=== PATIENT | female | born 1930 | race Caucasian/White ===

== ENCOUNTER → 2017-03-16 | Outpatient (CLI) | payer MEDICARE, BC ==
[~2017-03-16] MED LIST: AGGRENOX ER 251 CER PO; AMOXICILLIN 8751 TAB PO; ASPIR-LOW81 MG PO; ASPIRIN 81M81 MG/TA2 PO; BACTRIM DS 8001 TAB PO; BENADRYL25 M2 PO; BENICAR 20MG TA20 MG PO; BENICAR40 MG; BP MEDICATION; CEPHALEXIN500 M1 PO; CORICIDIN COUGH1 TAB PO; COZAAR100 MG PO; DIURETIC; FLAGYL500 MG PO; FOSAMAX 70MG TA70 MG PO; K-TAB20 PO; LEVAQUIN 750MG750 M1 PO; LEXAPRO 10MG10 MG PO; LOPRESSOR 225 MG/TAB PO; MICARDIS20 MG PO; NIZORAL CREAM15 GM TP; TRAVATAN 2.5 M2.5 M1 OU; TYLENOL 500MG500 MG PO; ULTRAM 50MG TAB50 MG PO; ZOFRAN ODT4 MG PO
== END ==
LOC: COL.RAD 07:46
DX: M48.06 Spinal stenosis, lumbar region (principal); M51.37 Other intervertebral disc degeneration, lumbosacral region; M46.87 Other specified inflammatory spondylopathies, lumbosacral region; M54.41 Lumbago with sciatica, right side; M43.17 Spondylolisthesis, lumbosacral region; M25.551 Pain in right hip; M79.604 Pain in right leg

== ENCOUNTER 2017-04-03 13:54 | Emergency (ER) | payer MEDICARE, BC ==
[~2017-04-03] VITALS: Ht 149.9 cm; Wt 72.7 kg
[2017-04-03 13:55] VITALS: TEMP 98.2
[2017-04-03] MEDS ORDERED: REQUIP5 MG PO (14:20)
[2017-04-03] MEDS ORDERED: ASPIRIN 81M81 MG/TA2 PO (14:21)
[2017-04-03] MEDS ORDERED: TIAZAC120 MG PO (14:22)
[2017-04-03] MEDS ORDERED: COZAAR100 MG PO (14:23)
[2017-04-03] MEDS ORDERED: PROLIA60 MG/ML SQ (14:24)
[2017-04-03 15:02] LABS: BASO # 0.1 (0.0-0.2); BASO % 0.6 % (0.0-2.0); EOS # 0.1 (0.0-0.7); EOS % 0.6 % (0-4.0); GRAN # 10.4 (1.4-6.5); GRAN % 78.2 % (42.2-75.2); LYMPH # 1.9 (1.2-3.4); LYMPH % 14.1 % (20.0-51.0); MEAN CELL VOLUME 98 fl (80.0-100.0); MEAN CORPUSCULAR HGB CONC 34 g/dl (33.0-37.0); MEAN PLATELET VOLUME 9.1 fl (7.4-10.4); MONO # 0.8 (0.1-0.6); MONO % 6.2 % (1.7-9.3); PLATELET COUNT 526 K/mm3 (130-400); RED BLOOD COUNT 2.72 M/mm3 (4.10-5.30); REDCELL DISTRIBUTION WIDTH-CV 15.3 % (11.5-14.5); WHITE BLOOD COUNT 13.3 K/mm3 (4.8-10.8)
[2017-04-03 15:04] LABS: HEMATOCRIT 26.6 % (37.0-47.0); HEMOGLOBIN 8.9 g/dl (12.5-16.0); MEAN CORPUSCULAR HEMOGLOBIN 33 pg (27.0-31.0); PH 5 (5-8); SQUAMOUS EPITHELIAL 0-2 /hpf; URINE APPEARANCE Clear; URINE BACTERIA None Seen /hpf; URINE BILIRUBIN Negative (NEGATIVE); URINE BLOOD Negative (NEGATIVE); URINE COLOR Yellow; URINE GLUCOSE Negative (NEGATIVE); URINE KETONE Trace (NEGATIVE); URINE RBC 0-2 /hpf; URINE UROBILINOGEN Negative (NEGATIVE); URINE WBC 0-2 /hpf
[2017-04-03 15:19] LABS: ADJUSTED CALCIUM 9.5 mg/dL (8.4-10.2); BILIRUBIN,TOTAL 0.4 mg/dL (0.0-1.0); C-REACTIVE PROTEIN 1.4 mg/dL (0.0-0.9); CALCIUM 9.5 mg/dL (8.4-10.2); CREATININE, serum 0.71 mg/dL (0.52-1.25); MAGNESIUM 2.1 mg/dL (1.6-2.3); POTASSIUM 4.2 mmol/L (3.4-5.0); TOTAL PROTEIN 6.9 gm/dL (6.4-8.2)
[2017-04-03] MEDS ORDERED: LEVAQUIN 750MG750 M1 PO (17:50)
[2017-04-03] MEDS ORDERED: FLAGYL500 MG PO (17:50)
[2017-04-03 19:41] VITALS: BP 117/61; PULSE 87
== END 2017-04-03 19:42 | disposition home or self-care (01) ==
LOC: COL.ER 13:54
PROVIDERS: Emergency Medicine
DX: K57.92 Diverticulitis of intestine, part unspecified, without perforation or abscess without bleeding (principal); D64.9 Anemia, unspecified; Z90.49 Acquired absence of other specified parts of digestive tract; Z90.89 Acquired absence of other organs; Z90.710 Acquired absence of both cervix and uterus
CPT/HCPCS: J2405; J7030; Q9967

== ENCOUNTER → 2017-04-28 | Outpatient (CLI) | payer MEDICARE, BC ==
[~2017-04-28] MED LIST changes: +CARDIZEM 90MG T90 MG PO; +CIPRO 500MG TA500 MG PO; +FERROUS SU325 MG/TAB PO; +FERROUSAL325 MG PO; +PROLIA60 MG/ML SQ; +PROTONIX 40MG T40 MG PO; +REQUIP5 MG PO; +TIAZAC120 MG PO; +VITAMIN C500 MG PO
== END ==
LOC: MC.RAD 07:56
DX: Z12.31 Encounter for screening mammogram for malignant neoplasm of breast (principal); Z98.890 Other specified postprocedural states

== ENCOUNTER → 2017-05-30 | Outpatient (CLI) | payer MEDICARE, BC ==
[~2017-05-30] VITALS: Ht 149.9 cm; Wt 72.9 kg
[~2017-05-30] MED LIST changes: +PROTONIX20 MG PO
[2017-05-30 13:06] VITALS: BP 130/66; PULSE 85
[2017-05-30 14:30] VITALS: BP 164/79; PULSE 76
== END ==
LOC: COL.RAD 12:48
DX: M48.00 Spinal stenosis, site unspecified (principal); M79.604 Pain in right leg
CPT/HCPCS: J3301

== ENCOUNTER → 2017-11-08 | Outpatient (CLI) | payer MEDICARE, BC ==
[~2017-11-08] VITALS: Ht 149.9 cm; Wt 72.1 kg
[~2017-11-08] MED LIST changes: +CARDIZEM120 MG PO; +REQUIP4 MG PO
[2017-11-08 13:17] VITALS: BP 175/79; PULSE 80
[2017-11-08 15:21] VITALS: BP 176/75; PULSE 76
== END ==
LOC: COL.RAD 12:46
DX: M51.16 Intervertebral disc disorders with radiculopathy, lumbar region (principal); M48.061 Spinal stenosis, lumbar region without neurogenic claudication
CPT/HCPCS: J3301

== ENCOUNTER → 2018-06-27 | Outpatient (CLI) | payer MEDICARE, BC | LOC: MC.RAD 05-16 08:20 | DX: C50.912 Malignant neoplasm of unspecified site of left female breast (principal); C50.911 Malignant neoplasm of unspecified site of right female breast ==

== ENCOUNTER → 2018-06-30 | Outpatient (CLI) | payer MEDICARE, BC | LOC: MC.RAD 08:21 | DX: C50.912 Malignant neoplasm of unspecified site of left female breast (principal); C50.911 Malignant neoplasm of unspecified site of right female breast; Z90.11 Acquired absence of right breast and nipple; Z98.82 Breast implant status; Z98.890 Other specified postprocedural states | CPT/HCPCS: G0279 ==

== ENCOUNTER → 2018-07-28 | Outpatient (CLI) | payer MEDICARE, BC ==
[~2018-07-28] VITALS: Ht 149.9 cm; Wt 67.2 kg
[2018-07-28 13:15] VITALS: BP 180/80; PULSE 75
[2018-07-28 15:00] VITALS: BP 181/81; PULSE 76
--- NOTE | 2018-07-28 15:21 | NUR ---
called for pts ride home [place] will be here in about 20 minutes.
--- NOTE | 2018-07-28 15:40 | NUR ---
Pt out to car per wheelchair. Pt able to ambulate with assistance of cane. Pt assisted into car. Informed son of pt continuing to have pain in upper back and that this injection would not help with that pain. Pt needs to follow up with Dr Quinn.
== END ==
LOC: COL.RAD 13:01
DX: M48.061 Spinal stenosis, lumbar region without neurogenic claudication (principal)
CPT/HCPCS: J3301